=== PATIENT | female | born 1965 | race American Indian/Alaskan Native ===

== ENCOUNTER 2017-06-06 08:59 | Outpatient (CLI) | payer OTHER ==
--- NOTE | 2017-06-06 10:33 | Mammography Report ---
BILATERAL DIGITAL SCREENING MAMMOGRAM with CAD: 06/06/17 08:59:00 CLINICAL: Routine screening. COMPARISON:02/08/08 FINDINGS: The breasts are heterogeneously dense, which may obscure small masses. No mass, architectural distortion or suspicious calcifications. IMPRESSION: No mammographic evidence of malignancy. BI-RADS CATEGORY: 1 - - Negative RECOMMENDATION: Routine mammographic screening in one year. COMMENT: Patient follow-up letters are generated by our [employer] application.
== END 2017-06-06 09:00 | disposition home or self-care (01) ==
LOC: MAMMO 08:59
PROVIDERS: ATTEND Registered Nurse
DX: Z12.31 Encounter for screening mammogram for malignant neoplasm of breast (principal)
CPT/HCPCS: 77067

== ENCOUNTER 2017-09-16 16:08 | Emergency (ER) | payer OTHER ==
[2017-09-16 16:19] VITALS: BP 140/94
[2017-09-16] MEDS ORDERED: MOTRIN PO ONE (18:36)
[2017-09-16] MEDS ORDERED: BACTRIM DS PO ONE (18:36)
[2017-09-16] MEDS ORDERED: KEFLEX PO ONE (18:37)
--- NOTE | 2017-09-16 18:48 | Emergency Department Report ---
- General Stated complaint: INSECT BITE Time Seen by Provider: 09/16/17 18:05 Source: patient Mode of arrival: Ambulatory Limitations: No Limitations - History of Present Illness Initial comments: 52-year-old female past medical history diabetes presents with abscess and right scapular region. - Related Data Previous Rx's Medication Instructions Recorded Last Taken Type Cephalexin [Keflex] 500 mg PO Q12HR #14 cap 09/16/17 Unknown Rx Ibuprofen [Motrin] 800 mg PO Q8HR PRN #20 tablet 09/16/17 Unknown Rx Sulfamethoxazole/Trimethoprim 1 each PO BID #14 tablet 09/16/17 Unknown Rx [Bactrim DS TAB] Allergies Allergy/AdvReac Type Severity Reaction Status Date / Time No Known Allergies Allergy Verified 09/16/17 16:14 Abscess Boil HPI - HPI Chief Complaint: Skin/Abscess/Foreign Body Stated Complaint: INSECT BITE Time Seen by Provider: 09/16/17 18:05 Home Medications: Previous Rx's Medication Instructions Recorded Last Taken Type Cephalexin [Keflex] 500 mg PO Q12HR #14 cap 09/16/17 Unknown Rx Ibuprofen [Motrin] 800 mg PO Q8HR PRN #20 tablet 09/16/17 Unknown Rx Sulfamethoxazole/Trimethoprim 1 each PO BID #14 tablet 09/16/17 Unknown Rx [Bactrim DS TAB] Allergies/Adverse Reactions: Allergies Allergy/AdvReac Type Severity Reaction Status Date / Time No Known Allergies Allergy Verified 09/16/17 16:14 ED Review of Systems ROS: Stated complaint: INSECT BITE Other details as noted in HPI ED Past Medical Hx - Past Medical History Previous Medical History?: Yes Hx Diabetes: Yes - Surgical History Hx Cholecystectomy: Yes - Social History Smoking Status: Never Smoker Substance Use Type: Alcohol - Medications Home Medications: Home Medications Medication Instructions Recorded Confirmed Last Taken Type Cephalexin [Keflex] 500 mg PO Q12HR #14 cap 09/16/17 Unknown Rx Ibuprofen [Motrin] 800 mg PO Q8HR PRN #20 tablet 09/16/17 Unknown Rx Sulfamethoxazole/Trimethoprim 1 each PO BID #14 tablet 09/16/17 Unknown Rx [Bactrim DS TAB] ED Physical Exam - General Limitations: No Limitations General appearance: alert, in no apparent distress - Head Head exam: Present: atraumatic, normocephalic - Eye Eye exam: Present: normal appearance, PERRL, EOMI - ENT ENT exam: Present: mucous membranes moist - Neck Neck exam: Present: normal inspection - Respiratory Respiratory exam: Present: normal lung sounds bilaterally. Absent: respiratory distress - Cardiovascular Cardiovascular Exam: Present: regular rate, normal rhythm. Absent: systolic murmur, diastolic murmur, rubs, gallop - GI/Abdominal GI/Abdominal exam: Present: soft, normal bowel sounds - Extremities Exam Extremities exam: Present: normal inspection - Back Exam Back exam: Present: normal inspection - Neurological Exam Neurological exam: Present: alert, oriented X3 - Psychiatric Psychiatric exam: Present: normal affect, normal mood - Skin Skin exam: Present: warm, dry, intact, normal color. Absent: rash - Expanded Skin Exam Expanded Distribution of rash: back Description of rash: Present: tenderness, fluctuant 1 - Abscess here approximately 4 cm in diameter with central fluctuance ED Course Vital Signs 09/16/17 16:14 Temperature 98.7 F Pulse Rate 97 H Respiratory 16 Rate Blood Pressure 140/94 O2 Sat by Pulse 97 Oximetry Critical care attestation.: If time is entered above; I have spent that time in minutes in the direct care of this critically ill patient, excluding procedure time. ED Disposition Clinical Impression: Abscess, Encounter for incision and drainage procedure Disposition: DC-01 TO HOME OR SELFCARE Is pt being admited?: No Does the pt Need Aspirin: No Condition: Stable Instructions: Abscess Incision and Drainage (ED), Abscess (ED) Prescriptions: Cephalexin [Keflex] 500 mg PO Q12HR #14 cap Ibuprofen [Motrin] 800 mg PO Q8HR PRN #20 tablet PRN Reason: Pain Sulfamethoxazole/Trimethoprim [Bactrim DS TAB] 1 each PO BID #14 tablet Referrals: [facility] [Provider Group] - 3-5 Days Forms: Work/School Release Form(ED) Time of Disposition: 18:50
== END 2017-09-16 18:57 | disposition home or self-care (01) ==
LOC: ED 16:08
DX: M86.8X1 Other osteomyelitis, shoulder (principal); E11.9 Type 2 diabetes mellitus without complications; W57.XXXA Bitten or stung by nonvenomous insect and other nonvenomous arthropods, initial encounter; Y93.89 Activity, other specified; Y99.9 Unspecified external cause status; Y92.9 Unspecified place or not applicable
CPT/HCPCS: 87076; 87116; 87186; 99282

== ENCOUNTER 2017-11-28 13:28 | Emergency (ER) | payer OTHER ==
[2017-11-28] MEDS ORDERED: TORADOL IM ONE (16:35)
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
[2017-11-28 18:35] VITALS: BP 129/86
--- NOTE | 2017-11-28 18:51 | XRay Report ---
FINAL REPORT EXAM: XR LT SHOULDER CLINICAL INDICATIONS: Pain FINDINGS: AP views of the left shoulder were acquired and internal and external rotation as well as scapular Y view. These images demonstrate no fracture or malalignment of the left shoulder. The glenohumeral and acromioclavicular joints are normally located. IMPRESSION: NO FRACTURE IS SEEN IN THE LEFT SHOULDER
--- NOTE | 2017-11-28 18:53 | XRay Report ---
FINAL REPORT EXAM: XR C SPINE CLINICAL INDICATIONS: Pain Worse on lt side FINDINGS: AP, lateral and open-mouth views of the cervical spine were acquired and demonstrate no fracture or malalignment of the cervical spine. There is loss of intervertebral disc space height and mild endplate remodeling at C5-C6. The prevertebral soft tissues are within normal limits. IMPRESSION: NO FRACTURE IS SEEN IN THE CERVICAL SPINE
== END 2017-11-28 18:35 | disposition home or self-care (01) ==
LOC: ED 13:28
DX: S46.912A Strain of unspecified muscle, fascia and tendon at shoulder and upper arm level, left arm, initial encounter (principal); M54.2 Cervicalgia; E11.9 Type 2 diabetes mellitus without complications; J45.909 Unspecified asthma, uncomplicated; Z90.49 Acquired absence of other specified parts of digestive tract; V49.09XA Driver injured in collision with other motor vehicles in nontraffic accident, initial encounter; Y93.89 Activity, other specified; Y99.8 Other external cause status; Y92.488 Other paved roadways as the place of occurrence of the external cause
CPT/HCPCS: 72040; 73030; 82962; 99284; J1885

== ENCOUNTER 2017-12-18 11:49 | Emergency (ER) | payer OTHER ==
[2017-12-18 12:01] VITALS: BP 138/86
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
[2017-12-18] MEDS ORDERED: TORADOL IM ONE (16:38)
--- NOTE | 2017-12-18 17:22 | Cat Scan Report ---
FINAL REPORT EXAM: CT HEAD/BRAIN WO CON HISTORY: headache TECHNIQUE: Axial noncontrast CT images the brain were performed. Total exam DLP 1295.75 mGy-cm Comparison: None FINDINGS: Mild cortical atrophy. Normal aburto-white differentiation. No midline shift or mass effect. Posterior fossa is unremarkable. Conjugate gaze. Orbital cones and apices are unremarkable. Clear imaged paranasal sinuses. No displaced calvarial fracture. IMPRESSION: No acute intracranial abnormality. Specifically, no transcortical infarct, bleed, or mass identified. Clear sinuses. If symptoms persist and there are no contraindications, recommend MRI brain with diffusion-weighted imaging.
== END 2017-12-18 17:31 | disposition home or self-care (01) ==
LOC: ED 11:49
DX: R51 Headache (principal); E11.9 Type 2 diabetes mellitus without complications; J45.909 Unspecified asthma, uncomplicated; F17.200 Nicotine dependence, unspecified, uncomplicated; Z90.49 Acquired absence of other specified parts of digestive tract; Z79.899 Other long term (current) drug therapy
CPT/HCPCS: 70450; 82962; 96372; 99283; J1885

== ENCOUNTER 2017-12-19 11:19 | Outpatient (CLI) | payer OTHER | END 2017-12-19 11:20 | disposition home or self-care (01) | LOC: VAS 11:19 | PROVIDERS: ATTEND Podiatrist Foot & Ankle Surgery | DX: M79.662 Pain in left lower leg (principal); M79.89 Other specified soft tissue disorders; J45.909 Unspecified asthma, uncomplicated; F17.210 Nicotine dependence, cigarettes, uncomplicated; Z90.49 Acquired absence of other specified parts of digestive tract ==

== ENCOUNTER 2018-07-17 08:17 | Outpatient (CLI) | payer OTHER ==
--- NOTE | 2018-07-17 10:55 | Mammography Report ---
LEFT DIGITAL DIAGNOSTIC MAMMOGRAM and LEFT BREAST ULTRASOUND: 07/17/18 08:17:00 CLINICAL: Recalled for asymmetry. COMPARISON:06/16/18 screening FINDINGS: Spot magnification CC and MLO and LM views were performed.An asymmetry persists on the MLO view it is not identified on other views. Targeted ultrasound of the left subareolar area demonstrated normal structures with no mass or cysts. IMPRESSION: Negative Mammogram and left breast ultrasound. BI-RADS CATEGORY: 1 -- Negative RECOMMENDATION: Routine mammographic screening in one year. ACR BI-RADS MAMMOGRAPHIC CODES: 0 = Needs additional imaging evaluation; 1 = Negative; 2 = Benign; 3 = Probably benign; 4 = Suspicious; 5 = Malignant; 6 = Known biopsy-proven malignancy COMMENT: 1. Dense breast tissue, i.e., adenosis, fibrocystic changes, etc., may obscure an underlying neoplasm. 2. Approximately 10% of cancers are not detected with mammography. 3. A negative mammography report should not delay biopsy if a clinically suspicious mass is present. COMMENT: Patient follow-up letters are generated via our [employer] application.
== END 2018-07-17 08:18 | disposition home or self-care (01) ==
LOC: MAMMO 08:17 → SPVWC 08:18
PROVIDERS: ATTEND Internal Medicine
DX: R92.8 Other abnormal and inconclusive findings on diagnostic imaging of breast (principal); J45.909 Unspecified asthma, uncomplicated; Z90.49 Acquired absence of other specified parts of digestive tract

== ENCOUNTER 2018-09-19 06:08 | Emergency (ER) | payer OTHER ==
[2018-09-19 06:15] VITALS: BP 156/69
--- NOTE | 2018-09-19 06:46 | XRay Report ---
PROCEDURE: XR CHEST 1V AP TECHNIQUE: Chest radiograph single view. HISTORY: Chest Pain COMPARISONS: None . FINDINGS: Heart: Normal. Mediastinum/Vessels: Normal. Lungs/Pleural space: Normal. Bony thorax: No acute osseous abnormality. Life support devices: None. IMPRESSION: No acute cardiopulmonary abnormality. This document is electronically signed by Collin Martines MD., Sep 19 2018 06:44:20 AM ET
[2018-09-19 07:29] LABS: Basophils % (Auto) 0.5 % (0.0-1.8); Eosinophils # (Auto) 0.1 K/mm3 (0.0-0.4); Eosinophils % (Auto) 2.1 % (0.0-4.3); Hematocrit 36.4 % (30.3-42.9); Hemoglobin 12.3 gm/dl (10.1-14.3); Lymphocytes # (Auto) 1.8 K/mm3 (1.2-5.4); Lymphocytes % (Auto) 38.9 % (13.4-35.0); Mean Corpuscular HGB Conc 34 % (30-34); Mean Corpuscular Volume 86 fl (79-97); Monocytes # (Auto) 0.3 K/mm3 (0.0-0.8); Monocytes % (Auto) 5.9 % (0.0-7.3); Platelet Count 408 K/mm3 (140-440); Red Blood Count 4.24 M/mm3 (3.65-5.03); Red Cell Distribution Width 14.3 % (13.2-15.2)
[2018-09-19] MEDS ORDERED: DUONEB *Not for PRN Use IH ONE (07:35)
--- NOTE | 2018-09-19 07:46 | Emergency Department Report ---
ED Shortness of Breath HPI - General Chief Complaint: Dyspnea/Respdistress Stated Complaint: DIFFICULTY IN BREATHING Time Seen by Provider: 09/19/18 07:34 Source: patient Mode of arrival: Ambulatory Limitations: No Limitations - History of Present Illness Initial Comments: cough x 2 weeks + saw PCP 1.5 weeks ago, diagnosed w/ sinusitis placed on Bactrim states sputum now clear, minimal residual sinus pain c/o SOB, CP with coughing ONLY, otherwise no pain states using inhaler frequently, hx of asthma no pleuritic pain MD Complaint: shortness of breath, cough -: Gradual, week(s) (2) Severity: mild Pain Scale: 2 Quality: other Consistency: intermittent Worsens With: coughing Known History Of: asthma Context: recent URI Associated Symptoms: chest pain (w/ coughing only), cough Treatments Prior to Arrival: bronchodilator - Related Data Previous Rx's Medication Instructions Recorded Last Taken Type Ibuprofen [Motrin] 800 mg PO Q8HR PRN #20 tablet 09/16/17 Unknown Rx Sulfamethoxazole/Trimethoprim 1 each PO BID #14 tablet 09/16/17 Unknown Rx [Bactrim DS TAB] cephALEXin [Keflex] 500 mg PO Q12HR #14 cap 09/16/17 Unknown Rx Ibuprofen [Motrin 800 MG tab] 800 mg PO Q8HR PRN #15 tablet 11/28/17 Unknown Rx Tizanidine HCl [Zanaflex] 2 mg PO TID PRN #15 capsule 11/28/17 Unknown Rx Butalb/Acetamin/Caff 50-325-40 1 tab PO Q6HR PRN #12 tab 12/18/17 Unknown Rx [Fioricet] ALBUTEROL NEB's [Proventil 0.083% 2.5 mg IH QID PRN #25 neb 09/19/18 Unknown Rx NEBS] predniSONE [Deltasone] 40 mg PO QDAY #10 tab 09/19/18 Unknown Rx Allergies Allergy/AdvReac Type Severity Reaction Status Date / Time No Known Allergies Allergy Verified 11/28/17 13:48 ED Review of Systems ROS: Stated complaint: DIFFICULTY IN BREATHING Other details as noted in HPI Comment: All other systems reviewed and negative Respiratory: see HPI Cardiovascular: as per HPI ED Past Medical Hx - Past Medical History Previous Medical History?: Yes Hx Diabetes: Yes Hx Asthma: Yes - Surgical History Past Surgical History?: Yes Hx Cholecystectomy: Yes - Social History Smoking Status: Never Smoker Substance Use Type: None - Medications Home Medications: Home Medications Medication Instructions Recorded Confirmed Last Taken Type Ibuprofen [Motrin] 800 mg PO Q8HR PRN #20 tablet 09/16/17 Unknown Rx Sulfamethoxazole/Trimethoprim 1 each PO BID #14 tablet 09/16/17 Unknown Rx [Bactrim DS TAB] cephALEXin [Keflex] 500 mg PO Q12HR #14 cap 09/16/17 Unknown Rx Ibuprofen [Motrin 800 MG tab] 800 mg PO Q8HR PRN #15 tablet 11/28/17 Unknown Rx Tizanidine HCl [Zanaflex] 2 mg PO TID PRN #15 capsule 11/28/17 Unknown Rx Butalb/Acetamin/Caff 50-325-40 1 tab PO Q6HR PRN #12 tab 12/18/17 Unknown Rx [Fioricet] ALBUTEROL NEB's [Proventil 0.083% 2.5 mg IH QID PRN #25 neb 09/19/18 Unknown Rx NEBS] predniSONE [Deltasone] 40 mg PO QDAY #10 tab 09/19/18 Unknown Rx ED Physical Exam - General Limitations: No Limitations General appearance: alert, in no apparent distress - Head Head exam: Present: atraumatic, normocephalic - Eye Eye exam: Present: normal appearance - ENT ENT exam: Present: normal orophraynx, mucous membranes moist, other (minimal R maxillary sinus ttp ) - Neck Neck exam: Present: normal inspection - Respiratory Respiratory exam: Present: normal lung sounds bilaterally, decreased breath sounds. Absent: respiratory distress, wheezes, rhonchi - Cardiovascular Cardiovascular Exam: Present: regular rate, normal rhythm. Absent: systolic murmur, diastolic murmur, rubs, gallop - GI/Abdominal GI/Abdominal exam: Present: soft, normal bowel sounds - Extremities Exam Extremities exam: Present: normal inspection - Back Exam Back exam: Present: normal inspection - Neurological Exam Neurological exam: Present: alert, oriented X3 - Psychiatric Psychiatric exam: Present: normal affect, normal mood - Skin Skin exam: Present: warm, dry, intact, normal color. Absent: rash ED Course Vital Signs 09/19/18 06:09 Temperature 98.0 F Pulse Rate 82 Respiratory 18 Rate Blood Pressure 156/69 O2 Sat by Pulse 100 Oximetry ED Medical Decision Making - Lab Data Result diagrams: 09/19/18 07:01 09/19/18 08:34 - EKG Data -: EKG Interpreted by Me EKG shows normal: sinus rhythm, axis, intervals, QRS complexes, ST-T waves Rate: normal - EKG Data Interpretation: normal EKG - Radiology Data Radiology results: report reviewed neg cxr - Medical Decision Making URI sx now improving w/ persistent cough, clear sputum now exam- diminished breath sounds low risk Wells PE, not concerning for cardiac etiology basic labs/CXR ordered at triage, pending given Duoneb repeat K 5.8- likely due to Bactrim as not on REVA/ARB and normal renal function given calcium gluconate, kayexelate already made fu appt with PCP finished bactrim today - Differential Diagnosis bronchitis, sinusitis, pna Critical care attestation.: If time is entered above; I have spent that time in minutes in the direct care of this critically ill patient, excluding procedure time. ED Disposition Clinical Impression: Hyperkalemia Asthma exacerbation Qualifiers: Asthma severity: mild Asthma persistence: intermittent Qualified Code(s): J45.21 - Mild intermittent asthma with (acute) exacerbation Disposition: DC-01 TO HOME OR SELFCARE Is pt being admited?: No Condition: Stable Instructions: Hyperkalemia (ED), Asthma (ED) Prescriptions: predniSONE [Deltasone] 40 mg PO QDAY #10 tab ALBUTEROL NEB's [Proventil 0.083% NEBS] 2.5 mg IH QID PRN #25 neb PRN Reason: Wheezing Referrals: DESTINEY DAWSON MD [Primary Care Provider] - 2-3 Days Time of Disposition: 09:54
[2018-09-19 07:50] LABS: BUN/Creatinine Ratio 12; Blood Urea Nitrogen 7 mg/dL (7-17); Calcium 9.3 mg/dL (8.4-10.2); Hemolysis Index 9
[2018-09-19] MEDS ORDERED: KIONEX PO ONE (09:11)
[2018-09-19] MEDS ORDERED: CALCIUM GLUCONATE 1,000 MG in NACL 0.9% 100 ML IV ONE (09:30)
== END 2018-09-19 11:01 | disposition home or self-care (01) ==
LOC: ED 06:08
DX: J45.21 Mild intermittent asthma with (acute) exacerbation (principal); E87.5 Hyperkalemia; E11.9 Type 2 diabetes mellitus without complications; Z90.49 Acquired absence of other specified parts of digestive tract; Z79.899 Other long term (current) drug therapy
CPT/HCPCS: 36415; 71045; 80048; 84132; 84484; 85025; 93005; 93010; 94640; 96374; 99284; J0610

== ENCOUNTER 2018-10-31 06:54 | Outpatient (CLI) | payer OTHER ==
--- NOTE | 2018-10-31 07:55 | XRay Report ---
LUMBOSACRAL SPINE, 5 VIEWS INDICATION: M54.5 LOW BACK PAIN. COMPARISON: None. FINDINGS: Normal bone mineralization. There is normal height and alignment of the lumbar vertebra. No evidence for compression deformity, malalignment or bone lesion. Minimal degenerative endplate amaro es are identified at all levels although no significant disc space narrowing. The facet joints are in appropriate relationship with no significant facet arthropathy. The neural foramen are widely patent bilaterally. The sacrum and SI joints are unremarkable. IMPRESSION: Minimal lumbar spondylosis as described. Signer Name: Geraldo Means Jr, MD Signed: 10/31/2018 6:51 AM Workstation Name: [id number]
== END 2018-10-31 06:55 | disposition home or self-care (01) ==
LOC: XRAY 06:54
PROVIDERS: ATTEND Internal Medicine
DX: M47.816 Spondylosis without myelopathy or radiculopathy, lumbar region (principal); J45.909 Unspecified asthma, uncomplicated
CPT/HCPCS: 72110

== ENCOUNTER 2019-12-20 10:27 | Outpatient (CLI) | payer OTHER ==
--- NOTE | 2019-12-20 12:35 | Mammography Report ---
DIGITAL SCREENING MAMMOGRAM WITH CAD, 12/20/2019 INDICATION: Routine screening mammography. TECHNIQUE: Digital bilateral 2D mammography was obtained in the craniocaudal and mediolateral obliq ue projections. This examination was interpreted with the benefit of Computer-Aided Detection analysi s. COMPARISON: 06/16/2018, 06/06/2017 FINDINGS: Breast Density: There are scattered areas of fibroglandular density. There is no evidence of dominant mass, suspicious calcifications or architectural distortion in eithe r breast. IMPRESSION: Follow up recommendation: Routine yearly BI-RADS Category 1: Negative. A "normal" or negative report should not discourage follow up or biopsy of a clinically significant f inding. A written summary of these findings will be mailed to the patient. The patient will be entered into a mammography reporting system which will generate a reminder letter for the patient's next appointmen t at the appropriate interval. The [employer] recommends yearly mammograms starting at age 40 and continuing as l yoselin as a woman is in good health. Breast MRI is recommended for women with an approximate 20-25% or greater lifetime risk of breast cancer, including women with a strong family history of breast or ova diana cancer or who have been treated for Hodgkin's disease. Signer Name: Brenton Pozo MD Signed: 12/20/2019 12:30 PM Workstation Name: [id number]
== END 2019-12-20 10:28 | disposition home or self-care (01) ==
LOC: SPVWC 10:27
PROVIDERS: ATTEND Student in an Organized Health Care Education/Training Program
DX: Z12.31 Encounter for screening mammogram for malignant neoplasm of breast (principal)
CPT/HCPCS: 77067

== ENCOUNTER 2020-08-26 09:53 | Outpatient (CLI) | payer OTHER ==
--- NOTE | 2020-08-26 13:47 | Magnetic Resonance Report ---
. MR lumbar spine wo con INDICATION / CLINICAL INFORMATION: 55 years Female; SPONDYLOSIS MYELOPATHY OR RAD. LUMBOSACRAL REGION M47.817. TECHNIQUE: Multisequence, multiplanar images of the lumbar spine were obtained. COMPARISON: None available. FINDINGS: ALIGNMENT: No significant abnormality. VERTEBRAE:Grossly normal marrow signal and vertebral body height for age. VISUALIZED SPINAL CORD: No significant abnormality. Conus is grossly normal in appearance. INTERVERTEBRAL DISCS: Mild disc desiccation seen at L4-5. LSWHP-JR-BUECH ANALYSIS: L1-2: No significant abnormality. L2-3: Minimal facet hypertrophy. L3-4: No significant abnormality. L4-5: Mild disc bulge and facet hypertrophy. L5-S1: Mild facet hypertrophy. PARASPINAL SOFT TISSUES: No significant abnormality. ADDITIONAL FINDINGS: None. IMPRESSION: 1. Mild degenerative changes of the lumbar spine as described above. No single, dominant cause for pa meka's symptomatology seen. Signer Name: Viral Celaya MD, III Signed: 08/26/2020 1:43 PM Workstation Name: [id number]
== END 2020-08-26 09:54 | disposition home or self-care (01) ==
LOC: MRI 09:53
DX: M47.816 Spondylosis without myelopathy or radiculopathy, lumbar region (principal); M51.36 Other intervertebral disc degeneration, lumbar region
CPT/HCPCS: 72148

== ENCOUNTER 2020-09-02 10:26 | Emergency (ER) | payer OTHER ==
--- NOTE | 2020-09-02 10:51 | Emergency Department Report ---
Stated Complaint: LEFT ARM TINGLING, NUMBNESS Time Seen by Provider: 09/02/20 10:50 - HPI History of Present Illness: 55-year-old -[place] female patient presents with complaints of left arm tingling today. Patient states the left arm tingling has been constant since March last year and that she has been following with a pain specialist and a neurologist. She states the tingling and numbness stems from neck pain and that her neurologist is supposed to order an MRI. She denies any headache, weakness, numbness/tingling/weakness in her legs, difficulty with speech/ambulation, or recent injuries to her neck or arm. Patient also complains of chronic right hip pain and states she recently had an x-ray performed that showed arthritis. No new changes to her hip pain per patient. She states recurrent falls due to the hip pain. She also reports she recently had an MRI of her back performed. No head injuries per patient. No loss of bladder/bowel control per patient or saddle paresthesia MSE screening note: Focused history and physical exam performed. Due to findings the following was ordered: ED Medical Decision Making - Medical Decision Making Patient is neurologically intact on exam. 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 ED Disposition for MSE Condition: Stable ED Physical Exam - General Limitations: No Limitations General appearance: alert, in no apparent distress, obese - Head Head exam: Present: atraumatic, normocephalic - Eye Eye exam: Present: normal appearance. Absent: scleral icterus - ENT ENT exam: Present: mucous membranes moist - Neck Neck exam: Present: tenderness (Left trapezius muscle tenderness and vertebral tenderness to palpation without obvious deformity) - Respiratory Respiratory exam: Present: normal lung sounds bilaterally. Absent: respiratory distress - Cardiovascular Cardiovascular Exam: Present: regular rate, normal rhythm - Extremities Exam Extremities exam: Present: full ROM, other (No tenderness to palpation of the left shoulder or obvious deformity noted; patient has full range of motion of the left shoulder, arm, hand, and wrist; ulnar and radial pulses noted) - Neurological Exam Neurological exam: Present: alert, oriented X3, CN II-XII intact, normal gait. Absent: motor sensory deficit - Expanded Neurological Exam Expanded Cerebellar function: Finger to Nose: Normal, Heel to [place]: Normal, Romberg: Normal Sensory exam: Upper Extremity Light Touch: Normal, Lower Extremity Light Touch: Normal Motor strength exam: RUE: 5, LUE: 5, RLE: 5, LLE: 5 Best Eye Response ([place]): (4) open spontaneously Best Motor Response ([place]): (6) obeys commands Best Verbal Response ([place]): (5) oriented [place] Total: 15 - Psychiatric Psychiatric exam: Present: normal affect, normal mood - Skin Skin exam: Present: warm, dry, intact, normal color. Absent: rash ED Review of Systems ROS: Stated complaint: LEFT ARM TINGLING, NUMBNESS Other details as noted in HPI Constitutional: denies: chills, fever, malaise Respiratory: denies: shortness of breath Cardiovascular: denies: chest pain Gastrointestinal: denies: abdominal pain Neurological: numbness, paresthesias. denies: headache, weakness, abnormal gait
[2020-09-02 11:05] VITALS: BP 172/87
== END 2020-09-02 11:20 | disposition left against medical advice (07) ==
LOC: ED 10:26
DX: R20.0 Anesthesia of skin (principal); Z53.21 Procedure and treatment not carried out due to patient leaving prior to being seen by health care provider

== ENCOUNTER 2021-02-19 08:02 | Outpatient (CLI) | payer OTHER ==
--- NOTE | 2021-02-20 08:03 | Mammography Report ---
DIGITAL SCREENING MAMMOGRAM WITH CAD, 02/19/2021 CLINICAL INFORMATION / INDICATION: Routine screening mammography. SCREENING MAMMO Z12.31 TECHNIQUE: Digital bilateral 2D mammography was obtained in the craniocaudal and mediolateral obliqu e projections. This examination was interpreted with the benefit of Computer-Aided Detection analysis . COMPARISON: 12/20/2019 FINDINGS: Breast Density: The breasts are heterogeneously dense, which may obscure small masses. No dominant mass, suspicious calcifications, or architectural distortion in either breast. IMPRESSION: No mammographic evidence of malignancy. Follow up recommendation: Routine yearly BI-RADS Category 1: Negative. A "normal" or negative report should not discourage follow up or biopsy of a clinically significant f inding. A written summary of these findings will be mailed to the patient. The patient will be entered into a mammography reporting system which will generate a reminder letter for the patient's next appointmen t at the appropriate interval. The [employer] recommends yearly mammograms starting at age 40 and continuing as l yoselin as a woman is in good health. Breast MRI is recommended for women with an approximate 20-25% or greater lifetime risk of breast cancer, including women with a strong family history of breast or ova diana cancer or who have been treated for Hodgkin's disease. Signer Name: Aren Leblanc MD Signed: 02/20/2021 7:59 AM Workstation Name: [id number]
== END 2021-02-19 08:03 | disposition home or self-care (01) ==
LOC: SPVWC 08:02
PROVIDERS: ATTEND Student in an Organized Health Care Education/Training Program
DX: Z12.31 Encounter for screening mammogram for malignant neoplasm of breast (principal)
CPT/HCPCS: 77067